=== PATIENT | male | born 1935 | race Caucasian/White ===

== ENCOUNTER 2018-11-24 15:05 | Inpatient (IN) | payer MEDICARE ==
[~2018-11-24 15:05] MED LIST: EPINEPHrine 10 MCG/1ml (10 ML SYG) IV; HEPARIN 5,000 UNIT/1 ML VIAL; NA BICARBONATE 8.4% 50 ML SYG
[2018-11-24] MEDS: HEPARIN 1000 UNITS/ML 10 ML INJ IV (15:19)
[2018-11-24 15:25] LABS: WHITE BLOOD COUNT 16.8 10^3/ul (4.8-10.8)
[2018-11-24 15:25] LABS: ABNORMAL IP MESSAGE 1; HEMATOCRIT 49.2 % (42.0-52.0); HEMOGLOBIN 15.7 g/dl (14.0-18.0); MEAN CORPUSCULAR HEMOGLOBIN 30.8 pg (29.0-33.0); MEAN CORPUSCULAR HGB CONC 31.9 g/dl (32.0-37.0); MEAN CORPUSCULAR VOLUME 96.5 fl (82.0-101.0); MEAN PLATELET VOLUME 10.4 fl (7.4-10.4); NUCLEATED RED BLOOD CELLS% 0.2 /100WBC (0.0-0.0); PLATELET COUNT 238 10^3/UL (140-415); POSITIVE DIFF @See below; RED CELL DISTRIBUTION WIDTH 12.8 % (11.5-14.5)
[2018-11-24 15:28] LABS: ADD MAN DIFF? YES
[2018-11-24] MEDS ORDERED: FENTAnyl (DRIP) 1000 mcg/100mL 100 ML IV (15:30)
[2018-11-24] MEDS ORDERED: PROPOFOL 100 ML IV ×2 (15:30→17:00)
[2018-11-24] MEDS: ASPIRIN 300 MG SUPP PR (15:39)
[2018-11-24 15:44] LABS: INR 1.24; PROTIME 15.7 Sec (11.9-14.9); PT RATIO 1.2
[2018-11-24] MEDS ORDERED: BIVALIRUDIN 250 MG/50 ML NS BAG IVPB (15:47)
[2018-11-24] MEDS ORDERED: NITROGLYCERIN (IC) 100 MCG/ML INJ ×2 (15:47→16:42)
[2018-11-24 15:53] LABS: Arterial Base Excess -8.7 mmol/L (-3.0-3); Arterial Blood Gas Oxygen Sat 96.5 mmHG (95.0-100.0); Arterial COHb 0.3 % (0.0-3.0); Arterial Fraction of Oxyhgb 95.9 % (93.0-99.0); Arterial HCO3 18.7 mmol/L (22.0-26.0); Arterial MetHb 0.3 % (0.0-1.5); Arterial pCO2 45.9 mmhg (35-45); MODE VENT - AC; Site A-Line
[2018-11-24 15:54] LABS: PARTIAL THROMBOPLASTIN TIME 44.9 Sec (23.0-35.0)
[2018-11-24] MEDS ORDERED: VERAPAMIL 5 MG INJ ×2 (16:23→16:41)
[2018-11-24] MEDS ORDERED: LIDOCAINE 1% (MPF) 5 ML VIAL SC (16:30)
[2018-11-24] MEDS ORDERED: HEPARIN 1000 UNITS/ML 10 ML INJ (16:42)
[2018-11-24] MEDS ORDERED: IODIXANOL LOCM 100 ML BTL (16:42)
[2018-11-24] MEDS ORDERED: NA BICARBONATE 8.4% 50 ML SYG (16:42)
[2018-11-24 16:52] LABS: ALANINE AMINOTRANSFERASE 415 IU/L (13-69); ALBUMIN 2.7 g/dl (3.3-4.9); ALBUMIN/GLOBULIN RATIO 1.03; ALKALINE PHOSPHATASE 72 IU/L (42-121); ANION GAP 8 (5-13); ASPARTATE AMINO TRANSFERASE 372 IU/L (15-46); BILIRUBIN,INDIRECT 0.4 mg/dl (0-1.1); BILIRUBIN,TOTAL 0.4 mg/dl (0.2-1.3); BLOOD UREA NITROGEN 18 mg/dl (7-20); CARBON DIOXIDE 28 mmol/L (21-31); CHLORIDE 107 mmol/L (97-110); CREATININE 1.01 mg/dl (0.61-1.24); GLUCOSE 236 mg/dl (70-220); LIPASE 291 U/L (23-300); MAGNESIUM 2.1 mg/dl (1.7-2.5); PHOSPHORUS 5.2 mg/dl (2.5-4.9); SODIUM 143 mmol/L (135-144); TOTAL PROTEIN 5.3 g/dl (6.1-8.1)
[2018-11-24 16:57] LABS: CALCIUM 7.5 mg/dl (8.4-10.2); ETHANOL < 10.0 mg/dl (0-0); POTASSIUM 3.2 mmol/L (3.5-5.1)
[2018-11-24] MEDS ORDERED: VECURONIUM 100 MG in DEXTROSE 5% 100 ML IV (16:57)
[2018-11-24] MEDS ORDERED: SOD CHLORIDE 0.9% 1,000 ML IV (16:57)
[2018-11-24] MEDS ORDERED: ACETAMINOPHEN 650 MG SUPP PR (17:00)
[2018-11-24] MEDS ORDERED: INSULIN HUMAN REGULAR 100 UNIT in SOD CHLORIDE 0.9% 99 ML IV (17:00)
[2018-11-24] MEDS ORDERED: MEPERIDINE 25 MG INJ IV ×2 (17:00)
[2018-11-24] MEDS ORDERED: DEXTROSE 50% 50 ML SYRINGE IV ×2 (17:00)
[2018-11-24] MEDS ORDERED: FENTAnyl 50 MCG/ML VIAL IV (17:00)
[2018-11-24] MEDS ORDERED: ACCU-CHEK XX (17:00)
[2018-11-24] MEDS ORDERED: MIDAZOLAM (DRIP) 50 mg/50 mL 50 ML IV (17:00)
[2018-11-24] MEDS ORDERED: ACETAMINOPHEN 650MG/20.3ML CUP PO (17:00)
[2018-11-24 17:07] LABS: TROPONIN-I 0.162 ng/ml (0.000-0.120)
[2018-11-24] MEDS ORDERED: NORepinephrine 8MG/250 ML (PMX 250 ML (17:22)
[2018-11-24 17:32] LABS: ANISOCYTOSIS 1+ (0-0); BAND NEUTROPHILS #M 0.8 10^3/ul (0.0-0.6); BAND NEUTROPHILS % (M) 5 % (0-4); BASOPHIL #M 0.1 10^3/ul (0.0-0.0); BASOPHILS % (M) 1 % (0-2); BURR CELLS 2+ (0-0); EOSINOPHILS % (M) 1 % (0-7); LYMPHOCYTES #M 10.2 10^3/ul (0.8-2.9); LYMPHOCYTES % (M) 61 % (15-51); METAMYELOCYTES #M 0.1 10^3/ul (0.0-0.0); METAMYELOCYTES %M 1 % (0-0); MONOCYTE #M 0.1 10^3/ul (0.3-0.9); MONOCYTES % (M) 1 % (0-11); MYELOCYTES #M 0.1 10^3/ul (0.0-0.0); MYELOCYTES % (M) 1 % (0-0); OVALOCYTES 1+ (0-0); PLATELET ESTIMATE NORMAL; POIKILOCYTOSIS 2+ (0-0); SEGMENTED NEUTROPHILS (M) % 29 % (39-77); SMUDGE%M 16 % (0-0)
[2018-11-24] MEDS ORDERED: ARTIFICIAL TEARS 15 ML OPH BOTH EYES (18:00)
[2018-11-24] MEDS ORDERED: OCULAR LUBRICANT 3.5 GM OPH OINT BOTH EYES (18:00)
[2018-11-25 12:23] LABS: ADD MAN DIFF? NO
[2018-11-25 12:24] LABS: ABNORMAL IP MESSAGE 1; BASOPHILS % 0.1 % (0.0-2.0); EOSINOPHILS % 0.2 % (0.0-7.0); HEMATOCRIT 12.6 % (42.0-52.0); LYMPHOCYTES % 37.9 % (15.0-51.0); MEAN CORPUSCULAR HEMOGLOBIN 31.3 pg (29.0-33.0); MEAN CORPUSCULAR HGB CONC 28.6 g/dl (32.0-37.0); MEAN CORPUSCULAR VOLUME 109.6 fl (82.0-101.0); MEAN PLATELET VOLUME 11.3 fl (7.4-10.4); MONOCYTE # 0.5 10^3/ul (0.3-0.9); MONOCYTES % 5.1 % (0.0-11.0); NEUTROPHIL # 5.8 10^3/ul (1.6-7.5); NEUTROPHILS % 54.6 % (39.0-77.0); NUCLEATED RED BLOOD CELLS% 0.3 /100WBC (0.0-0.0); PLATELET COUNT 353 10^3/UL (140-415); POSITIVE DIFF @See below; RED BLOOD COUNT 1.15 10^6/ul (4.70-6.10); RED CELL DISTRIBUTION WIDTH 13.8 % (11.5-14.5)
[2018-11-25 12:24] LABS: WHITE BLOOD COUNT 10.7 10^3/ul (4.8-10.8)
[2018-11-25 12:36] LABS: ALANINE AMINOTRANSFERASE 643 IU/L (13-69); ALBUMIN 2.4 g/dl (3.3-4.9); ALKALINE PHOSPHATASE 78 IU/L (42-121); ASPARTATE AMINO TRANSFERASE 591 IU/L (15-46); BILIRUBIN,INDIRECT 0.4 mg/dl (0-1.1); BILIRUBIN,TOTAL 0.4 mg/dl (0.2-1.3); TOTAL PROTEIN 4.4 g/dl (6.1-8.1)
[2018-11-25 12:44] LABS: HEMOGLOBIN 3.6 g/dl (14.0-18.0)
[2018-11-25 13:08] LABS: HEPATITIS B SURFACE ANTIGEN NEGATIVE (NEGATIVE)
[2018-11-25 13:10] LABS: HEPATITIS B SURFACE ANTIGEN NEGATIVE (NEGATIVE)
[2018-11-25 13:25] LABS: HEPATITIS C VIRAL ANTIBODY NEGATIVE (NEGATIVE); HIV 1&2 ANTIBODY NEGATIVE (NEGATIVE)
[2018-11-25 13:26] LABS: HEPATITIS B SURFACE ANTIBODY NEGATIVE (NEGATIVE)
[2018-11-25 13:27] LABS: HEPATITIS B SURFACE ANTIBODY NEGATIVE (NEGATIVE); HEPATITIS C VIRAL ANTIBODY NEGATIVE (NEGATIVE); HIV 1&2 ANTIBODY NEGATIVE (NEGATIVE)
[2018-11-25] MEDS ORDERED: ACETAMINOPHEN 650 MG SUPP PR (17:00)
[2018-11-25] MEDS ORDERED: ACETAMINOPHEN 650MG/20.3ML CUP PO (17:00)
== END 2018-11-24 17:46 | disposition expired | DRG 251 ==
LOC: E/R 15:05 → CCL 15:22 → SDS 15:22 → ICU 17:05 → CCL 15:37 → ICU 15:37
PROC: 02703ZZ Dilation of Coronary Artery, One Artery, Percutaneous Approach (ICD-10-PCS; principal; 2018-11-24 15:24)
PROC: 5A1935Z Respiratory Ventilation, Less than 24 Consecutive Hours (ICD-10-PCS; 2018-11-24 15:24)
PROC: 0BH17EZ Insertion of Endotracheal Airway into Trachea, Via Natural or Artificial Opening (ICD-10-PCS; 2018-11-24 15:24)
PROC: 4A023N7 Measurement of Cardiac Sampling and Pressure, Left Heart, Percutaneous Approach (ICD-10-PCS; 2018-11-24 15:24)
PROC: B2011ZZ Plain Radiography of Multiple Coronary Arteries using Low Osmolar Contrast (ICD-10-PCS; 2018-11-24 15:24)
DX: I21.19 ST elevation (STEMI) myocardial infarction involving other coronary artery of inferior wall (principal); R04.2 Hemoptysis; G93.1 Anoxic brain damage, not elsewhere classified; I25.119 Atherosclerotic heart disease of native coronary artery with unspecified angina pectoris; E78.5 Hyperlipidemia, unspecified; I46.2 Cardiac arrest due to underlying cardiac condition
CPT/HCPCS: 36415; 36600; 71045; 80053; 80076; 80307; 82803; 83605; 83690; 83735; 84100; 84484; 85025; 85610; 85730; 86703; 86706; 86803; 86850; 86900; 86901; 87040-91; 87340; 92950; 93005; 93458; 94002; 96374; 99285-25